=== PATIENT | male | born 1955 | race Caucasian/White ===

== ENCOUNTER 2017-09-17 07:08 | Emergency (ER) | payer BC ==
--- OUTSIDE RECORDS SUMMARY | 2017-09-17 07:10 | XMS REPORT | Clinical Summary ---
:1955 Author Organization [facility] Address [address] [place] [address] Phone Care Team Providers Name Role Phone Unavailable Primary Care Provider Unavailable Allergies No Known Allergies Current Medications Prescription Sig. Disp. Refills Start Date End Date Status esomeprazole (NEXIUM) Take 40 mg by mouth 2 Active 40 MG capsule (two) times daily . folic acid (FOLVITE) Take 1 mg by mouth Active 1 MG tablet daily. gabapentin Take 300 mg by mouth 3 Active (NEURONTIN) 300 MG (three) times daily. capsule metFORMIN Take 1,000 mg by mouth Active (GLUCOPHAGE) 1000 MG 2 (two) times daily tablet with breakfast and dinner. thiamine 100 MG Take 100 mg by mouth Active tablet daily. insulin glargine Inject 40 Units Active (LANTUS) 100 unit/mL subcutaneously every injection morning Use as directed . lisinopril Take 20 mg by mouth Active (PRINIVIL,ZESTRIL) 20 daily In the evening . MG tablet temazepam (RESTORIL) Take 30 mg by mouth Active 30 mg capsule every night as needed for Sleep. amLODIPine (NORVASC) Take 5 mg by mouth Active 5 MG tablet daily In the evening . glipiZIDE (GLUCOTROL Take 5 mg by mouth Active XL) 5 MG 24 hr daily At 12 noon . tabletIndications: type 2 diabetes mellitus metoprolol Take 50 mg by mouth 3 Active (LOPRESSOR) 50 MG (three) times daily i tablet tab in am, 2 tabs in pm . traMADol (ULTRAM) 50 Take 50 mg by mouth Active mg tablet every 6 (six) hours as needed for Pain. cloNIDine HCl Take 0.1 mg by mouth 4 Active (CATAPRES) 0.1 MG (four) times daily as tablet needed (prn high blood pressure). Active Problems Problem Noted Date Lower GI bleeding 01/06/2016 Acute blood loss anemia 01/06/2016 Chronic pancreatitis (HCC) 01/06/2016 HTN (hypertension) 01/06/2016 Type 2 diabetes mellitus (HCC) 01/06/2016 GERD (gastroesophageal reflux disease) 01/06/2016 Diverticulosis large intestine w/o perforation or abscess w/bleeding 2015 Gallstone pancreatitis 08/26/2013 Immunizations Name Dates Previously Given Next Due Pneumococcal Polysaccharide (Pneumovax) 01/06/2016 Social History Tobacco Use Types Packs/Day Years Used Date Current Every Day Smoker Cigarettes 0.5 27 Smokeless Tobacco: Never Used Tobacco Cessation: Ready to Quit: No Alcohol Use Drinks/Week oz/Week Comments Yes 2 Glasses of wine 1.2 since new years. Sex Assigned at Date Recorded Not on file Last Filed Vital Signs Not on file Plan of Treatment Health Maintenance Due Date Last Done Comments INFLUENZA VACCINE 03/02/2018 Results Not on fileafter 09/16/2016
--- NOTE | 2017-09-17 07:42 | ER ---
Nurse's Notes [facility] Name: Yannick Barrios Age: 61 yrs Sex: Male : 1955 Arrival Date: 09/17/2017 Time: 07:13 Bed 20 Private MD: Nael Espinoza Diagnosis: piraformis syndrome. Presentation: 09/17 07:22 Presenting complaint: Patient states: has had right hip pain since the weekend, felt a iw pop on then started having pain over the weekend, has hx of arthritis in left hip. Transition of care: patient was not received from another setting of care. Onset of symptoms was September 14, 2017. Initial Sepsis Screen: Does the patient meet any 2 criteria? No. Patient's initial sepsis screen is negative. Does the patient have a suspected source of infection? No. Patient's initial sepsis screen is negative. Care prior to arrival: None. 07:22 Method Of Arrival: Ambulatory iw 07:22 Acuity: MICHAEL 4 iw Historical: - Allergies: 07:26 Bees; iw - Home Meds: 07:26 Folic Acid Oral [Active]; gabapentin Oral [Active]; insulin [Active]; lisinopril Oral iw [Active]; Metformin Oral [Active]; Metoprolol Tartrate Oral [Active]; Nexium Oral [Active]; - PMHx: 07:26 Diabetes - IDDM; High Cholesterol; Hypertension; Pancreatitis; Arthritis; iw - PSHx: 07:26 Cholecystectomy; iw - Immunization history:: Adult Immunizations up to date. - Social history:: Smoking status: Patient/guardian denies using tobacco. Screenin:33 Abuse screen: Denies threats or abuse. Nutritional screening: No deficits noted. em Tuberculosis screening: No symptoms or risk factors identified. Fall Risk None identified. Assessment: 07:33 General: Appears in no apparent distress. comfortable, Behavior is calm, cooperative. em Pain: Complains of pain in right hip Pain currently is 7 out of 10 on a pain scale. Quality of pain is described as shooting, Pain began 2-3 days ago. Neuro: Level of Consciousness is awake, alert, obeys commands, Oriented to person, place, time, situation. Cardiovascular: Capillary refill < 3 seconds Patient's skin is warm and dry. Respiratory: Airway is patent Respiratory effort is even, unlabored, Respiratory pattern is regular, symmetrical. GI: Abdomen is round non-distended. : No signs and/or symptoms were reported regarding the genitourinary system. EENT: No signs and/or symptoms were reported regarding the EENT system. Derm: Skin is intact, Skin is pink, warm \T\ dry. Musculoskeletal: Circulation, motion, and sensation intact. Range of motion: intact in all extremities. 07:40 Reassessment: Patient appears in no apparent distress at this time. I agree with above iw assessment by Daniel Martinez LVN. Vital Signs: 07:26 BP 167 / 94; Pulse 69; Resp 18; Temp 97.2; Pulse Ox 99% on R/A; iw ED Course: 07:13 Patient arrived in ED. mr 07:13 Nael Espinoza MD is Private Physician. mr 07:21 Daniel Martinez LVN is Primary Nurse. em 07:24 Triage completed. iw 07:26 Arm band placed on. iw 07:33 Patient has correct armband on for positive identification. Bed in low position. Call em light in reach. Side rails up X2. 07:35 Adrian Burrell MD is Attending Physician. ps1 07:41 Nael Espinoza MD is Referral Physician. ps1 08:16 No provider procedures requiring assistance completed. Patient did not have IV access em during this emergency room visit. Administered Medications: 08:06 Not Given (Physician Discretion): Orphenadrine 100 mg PO once em 08:07 Drug: TORadol 30 mg Route: IM; Site: right deltoid; em 08:18 Follow up: Response: No adverse reaction em 08:07 Drug: Decadron 10 mg Route: IM; Site: left deltoid; em 08:18 Follow up: Response: No adverse reaction em Outcome: 07:41 Discharge ordered by . ps1 08:17 Discharged to home ambulatory. em 08:17 Condition: good 08:17 Discharge instructions given to patient, Instructed on discharge instructions, follow up and referral plans. medication usage, Demonstrated understanding of instructions, follow-up care, medications, Prescriptions given X 2. 08:29 Patient left the ED. em Signatures: Mariia Starr mr Daniel Martinez LVN LVN em Mary Chris, RN RN iw Adrian Burrell MD MD ps1
--- NOTE | 2017-09-17 07:42 | EDPHYS ---
Physician Documentation [facility] Name: Yannick Barrios Age: 61 yrs Sex: Male : 1955 Arrival Date: 09/17/2017 Time: 07:13 Bed 20 Private MD: Nael Espinoza ED Physician Adrian Burrell HPI: 09/17 07:35 This 61 yrs old Male presents to ER via Ambulatory with complaints of Hip ps1 Pain. 07:35 The patient or guardian reports decreased range of motion, pain. that occurred at an ps1 unknown site, sustained from unknown reason, The patient is able to self ambulate. The patient is able to bear their full body weight. The patient's discomfort radiates to the right leg. The complaints affect the right lower back. Onset: The symptoms/episode began/occurred 4 day(s) ago. Severity of symptoms: At their worst the symptoms were moderate, in the emergency department the symptoms are unchanged. patient has pain that radiates down the right lateral aspect of the hip. Pain with extension of the leg. Described as electrical feeling. . Historical: - Allergies: 07:26 Bees; iw - Home Meds: 07:26 Folic Acid Oral [Active]; gabapentin Oral [Active]; insulin [Active]; lisinopril Oral iw [Active]; Metformin Oral [Active]; Metoprolol Tartrate Oral [Active]; Nexium Oral [Active]; - PMHx: 07:26 Diabetes - IDDM; High Cholesterol; Hypertension; Pancreatitis; Arthritis; iw - PSHx: 07:26 Cholecystectomy; iw - Immunization history:: Adult Immunizations up to date. - Social history:: Smoking status: Patient/guardian denies using tobacco. ROS: 07:35 Constitutional: Negative for fever, chills, and weight loss, Eyes: Negative for injury, ps1 pain, redness, and discharge, ENT: Negative for injury, pain, and discharge, Cardiovascular: Negative for chest pain, palpitations, and edema, Respiratory: Negative for shortness of breath, cough, wheezing, and pleuritic chest pain, Abdomen/GI: Negative for abdominal pain, nausea, vomiting, diarrhea, and constipation, MS/Extremity: Negative for injury and deformity, Skin: Negative for injury, rash, and discoloration, Neuro: Negative for headache, weakness, numbness, tingling, and seizure. 07:35 Back: Positive for decreased range of motion, pain with movement. Exam: 07:35 Constitutional: This is a well developed, well nourished patient who is awake, alert, ps1 and in no acute distress. Head/Face: Normocephalic, atraumatic. Eyes: Pupils equal round and reactive to light, extra-ocular motions intact. Lids and lashes normal. Conjunctiva and sclera are non-icteric and not injected. ENT: Nares patent. No nasal discharge, no septal abnormalities noted. Tympanic membranes are normal and external auditory canals are clear. Oropharynx with no redness, swelling, or masses, exudates, or evidence of obstruction, uvula midline. Mucous membranes moist. Chest/axilla: Normal chest wall appearance and motion. Nontender with no deformity. No lesions are appreciated. Cardiovascular: Regular rate and rhythm. No gallops, murmurs, or rubs. Normal PMI, no JVD. No pulse deficits. Respiratory: Lungs have equal breath sounds bilaterally, clear to auscultation and percussion. No rales, rhonchi or wheezes noted. No increased work of breathing, no retractions or nasal flaring. Abdomen/GI: Soft, non-tender, with normal bowel sounds. No distension or tympany. No guarding or rebound. No evidence of tenderness throughout. 07:35 Back: pain, that is very mild, ROM is painful, normal spinal alignment noted, muscle spasm, is appreciated in the right low back. Vital Signs: 07:26 BP 167 / 94; Pulse 69; Resp 18; Temp 97.2; Pulse Ox 99% on R/A; iw MDM: 07:35 Data reviewed: vital signs, nurses notes. ED course: patient history and physical ps1 consitent with piriformis syndrome. NSAIDs, steroids, muscle relaxer, and exercise. Stable for discharge. Follow up with Alexis. . 07:41 Patient medically screened. ps1 Administered Medications: 08:06 Not Given (Physician Discretion): Orphenadrine 100 mg PO once em 08:07 Drug: TORadol 30 mg Route: IM; Site: right deltoid; em 08:18 Follow up: Response: No adverse reaction em 08:07 Drug: Decadron 10 mg Route: IM; Site: left deltoid; em 08:18 Follow up: Response: No adverse reaction em Disposition: 09/17/17 07:41 Discharged to Home. Impression: piraformis syndrome. . - Condition is Stable. - Discharge Instructions: Back Pain, Adult, Back Exercises, [id number]. - Prescriptions for Robaxin 500 mg Oral Tablet - take 2 tablet by ORAL route every 6 hours As needed; 40 tablet. Medrol (Curtis) 4 mg Oral Tablets, Dose Pack - take 1 tablet by ORAL route as directed - follow package instructions; 1 packet. - Medication Reconciliation Form, Thank You Letter, Antibiotic Education, Prescription Opioid Use form. - Follow up: Nael Espinoza MD; When: As needed; Reason: Recheck today's complaints, Continuance of care, Re-evaluation by your physician. Follow up: Emergency Department; When: As needed; Reason: Fever > 102 F, Worsening of condition. - Problem is new. - Symptoms are unchanged. Signatures: Daniel Martinez, APPLE CARUSON em Mary Chris RN RN iw Singer, Phillip, MD MD ps1
[2017-09-17] MEDS ORDERED: DEXAMETHASONE 10 MG/ML VIAL ONE (07:57)
[2017-09-17] MEDS ORDERED: KETOROLAC 30 MG/ML INJ ONE (07:57)
[2017-09-17 08:33] VITALS: BP 167/94; TEMP 97.2; O2SAT 99
== END 2017-09-17 08:29 | disposition home or self-care (01) ==
LOC: ER 07:08
DX: G57.00 Lesion of sciatic nerve, unspecified lower limb (principal); I10 Essential (primary) hypertension; E11.9 Type 2 diabetes mellitus without complications; E78.00 Pure hypercholesterolemia, unspecified; Z79.4 Long term (current) use of insulin; Z91.030 Bee allergy status
CPT/HCPCS: 96372; 99283; J1100

== ENCOUNTER 2018-10-25 09:45 | Emergency (ER) | payer BC ==
--- OUTSIDE RECORDS SUMMARY | 2018-10-25 09:48 | XMS REPORT ---
:1955 Author Organization [facility] Address [address] [place] [address] [address] [place] [address] Care Team Providers Name Role Phone FRANCISCOSERAFINANTOINETTE Unavailable Unavailable JACQUELYN OLIVIA Unavailable Unavailable Problems This patient has no known problems. Allergies, Adverse Reactions, Alerts This patient has no known allergies or adverse reactions. Medications This patient has no known medications. Results Test Description Test Time Test Comments Text Results Atomic Results Result Comments [place], ERCP 2018-04-02 15:00:00 Reason for exam:->calculus FINAL REPORT PATIENT ID: of pancreas [id number] ERCP, 04/02/2018 Clinical History: Calculus of pancreas Impression: Intraoperative images are obtained. The radiologist is not present during the procedure. Fluoroscopy was not performed by the undersigned. Images are presented for interpretation at the completion of the procedure. Please refer to the procedure report for more details. 10 images submitted with fluoroscopy time of 7.5 minutes demonstrating interrogation of the pancreatic duct which appears irregular. Signed: Aysha Harris MDReport Verified Date/Time: 04/02/2018 15:00:46 Reading Location: [address] Radiology Reading Room -GLUCOSE METER 2018-04-02 14:38:00 Test Item Value Reference Range Comments POC-GLUCOSE METER (BEAKER) (test 316 mg/dL 70-110 TESTED AT [address] gxoz=[id number]) [facility] [address] POCT-GLUCOSE [id number] 13:05:00 Test Item Value Reference Range Comments POC-GLUCOSE METER (BEAKER) 277 mg/dL 70-110 TESTED AT [address] (test knle=9641) [facility] [address] POCT-GLUCOSE [id number] 11:19:00 Test Item Value Reference Range Comments POC-GLUCOSE METER (OMER) 298 mg/dL 70-110 TESTED AT [facility] [address] (test hjtv=3257) [facility] [address] CT, [id number] 14:05:00FINAL REPORT CT of the abdomen and pelvis, 01/26/2018. History: History of chronic pancreatitis. Comparison: 09/26/2017 and 08/02/2013. Technique: Multidetector CT scanning of the abdomen and pelvis was performed from the level of the lung bases to the inferior pubic ramus, with intravenous administration of non-ionic contrast and with oral contrast. This exam was performed according to our departmental dose-optimization program which includes automated exposure control, adjustment of the mA and/or kV according to patient size and/or use of iterative reconstruction technique. Discussion: Lung bases: 1.3 and 1.0 cm noncalcified nodules are present in the right lower lobe posteriorly, stable or decreased in size compared to prior CT of 2013,therefore benign. Abdomen: Multiple small dystrophic calcifications are again seen throughout the pancreas, especially in the head of the pancreas, consistent with chronic pancreatitis. There is no enhancing pancreatic lesion. The pancreatic tail is atrophic. The pancreatic duct is visible measuring up to 6 mm in diameter. Cholecystectomy clips are present. There is mild dilatation of the intrahepatic biliary ducts. A subcentimeter hypodensity is noted in the left kidney. The liver, spleen, adrenal glands, and kidneys are otherwise normal. The hepatic vein, portal vein , and splenic vein are patent. The abdominal aorta is diffusely calcified but within normal limits for size. Evaluation of bowel is limited without oral contrast. There is no bowel dilatation. The appendix is visualized and is normal. Diverticula are scattered throughout the distal colon without evidence of adjacent inflammation.There is no evidence of adenopathy or free fluid. Pelvis: The bladder, prostate, and seminal vesicles are normal in appearance. Bilateral fat-containing inguinal hernias are present. There is no evidence of free fluid or adenopathy. Bones: Degenerative changes are present throughout the lumbar spine without evidence of lytic or sclerotic lesion. IMPRESSION: 1. Findings of chronic pancreatitis. No evidence of pancreatic mass.2. Status post cholecystectomy.3. Colonic diverticulosis without evidence of diverticulitis. Otherwise unremarkable CT of the abdomen and pelvis. Signed: Brisa, Norbert MDReport Verified Date/Time: 01/26/2018 14:05:50 Reading Location: [address] Radiology Reading Room [id number] 12:17:00 Test Item Value Reference Range Comments POC-CREATININE (OMER) 0.7 mg/dL 0.6-1.3 TESTED AT [facility] (test uktr=7436) [facility] [address] POC-EGFR (BEDANIEL) (test 114 mL/min/1.73M2 vouw=6204) CT, [id number] 14:10:00FINAL REPORT ABDOMINAL AND PELVIS CT DATED 09/26/2017 COMPARISON: August 02, 2013 CLINICAL INFORMATION: CHRONIC PANCREATITIS DUE TO ACUTE ALCOHOL INTOXICATION TECHNIQUE: Axial images of the abdomen and pelvis were obtained from diaphragm to the pubic symphysis with intravenous contrast. Preintravenous axial images of the abdomen were obtained. This exam was performed according to our departmental dose- optimization program, which includes automated exposure control, adjustment of the mA and/or kV according to patient size and/or use of interactive reconstruction technique. COMMENT: A 7 mm partially calcified nodule is seen in the right lung bases compatible with hamartoma. Liver and spleen are normal in size without focal abnormality. Gallbladder is surgically absent. No biliary dilatation is noted. Body and tail of the pancreas are atrophic. Numerous punctate calcifications are seen throughout the pancreas consistent with chronic pancreatitis. There is minimal pancreatic duct dilatation in the body region measuring approximately 5 mm in diameter. No apparent mass is seen in the pancreas. The adrenals are unremarkable. Both kidneys are normal in size and functioning. A5 mm and 6 mm cysts are seen in the midpole left kidney. No hydronephrosis, hydroureter, urolithiasis is seen. Diverticular disease is seen in the large bowel without diverticulitis. Large amount fecalmaterial is seen in the large bowel and rectum suggesting constipation. Small bowel is normal in caliber. Appendix is not visualized. Atherosclerotic calcification is seen in the abdominal aorta and bilateral iliac arteries. IMPRESSION: 1. Chronic pancreatitis.2. Status post cholecystectomy without biliary dilatation.3. Diverticulosis and constipation. Signed: Shahrzad Riddle MDReport Verified Date/Time : 09/26/2017 14:10:22 Reading Location: [facility] B1 C013Y CT Body Reading Room Electronically signedby: SHAHRZAD RIDDLE M.D. on 09/26/2017 02:10 PMPOCT- [id number] 10:27:00 Test Item Value Reference Range Comments POC-CREATININE (Maximum Balance FoundationAKER) 0.7 mg/dL 0.6-1.3 TESTED AT [facility] (test dpdq=1764) [facility] [address] POC-EGFR (BEAKER) (test 115 mL/min/1.73M2 jasv=8402)
--- OUTSIDE RECORDS SUMMARY | 2018-10-25 09:48 | XMS REPORT | Clinical Summary ---
:1955 Author Organization [facility] Address [address] [place] [address] Care Team Providers Name Role Phone Asked, No Pcp Primary Care Provider Unavailable Allergies No Known Allergies Medications Medication Sig Dispensed Refills Start Date End Date Status clonIDINE (CATAPRES) 0.1 Take 0.1 mg by 0 04/27/2018 Active MG tablet mouth 4 (four) times a day. amLODIPine (NORVASC) 5 Take 5 mg by 1 02/12/2018 Active mg tablet mouth every evening. CREON 36,000-114,000- Take 1 capsule 2 01/28/2018 Active 180,000 unit by mouth 3 capsule,delayed (three) times a release(DR/EC) day. esomeprazole (NexIUM) 40 Take 40 mg by 3 03/12/2018 Active MG capsule mouth 2 (two) times a day. gabapentin (NEURONTIN) Take 300 mg by 1 02/19/2018 Active 300 mg capsule mouth 3 (three) times a day. HUMALOG KWIKPEN INSULIN Inject 2 Units 1 04/08/2018 Active 100 unit/mL injection under the skin 3 pen (three) times a day. LANTUS SOLOSTAR U-100 Inject 33 Units 1 04/24/2018 Active INSULIN 100 unit/mL under the skin injection (pen) nightly. lisinopril Take 20 mg by 0 04/27/2018 Active (PRINIVIL,ZESTRIL) 20 mg mouth every tablet evening. metFORMIN (GLUCOPHAGE) Take 1,000 mg by 0 04/20/2018 Active 1,000 mg tablet mouth 2 (two) times a day. metoprolol tartrate Take 50 mg by 1 02/12/2018 Active (LOPRESSOR) 50 mg tablet mouth 3 (three) times a day. omega-3 acid ethyl Take 1 capsule 3 02/27/2018 Active esters (LOVAZA) 1 gram by mouth daily. capsule temazepam (RESTORIL) 30 Take 30 mg by 1 03/12/2018 Active mg capsule mouth daily. traMADol (ULTRAM) 50 mg Take 50 mg by 1 04/07/2018 Active tablet mouth 3 (three) times a day. folic acid (FOLVITE) 1 Take 1 tablet by 3 03/18/2018 Active MG tablet mouth daily. Bifidobacterium infantis Take 1 tablet by 0 Active (ALIGN ORAL) mouth daily. FLAXSEED ORAL Take 1 tablet by 0 Active mouth daily. MILK THISTLE ORAL Take 1 tablet by 0 Active mouth daily. NIACIN ORAL Take 1 tablet by 0 Active mouth daily. thiamine 100 MG tablet Take 100 mg by 0 Active mouth daily. Active Problems Problem Noted Date Umbilical hernia without obstruction and without gangrene 05/05/2018 Last Assessment & Plan: The patient has a symptomatic umbilical hernia. The patient's last hemoglobin A1c was 7%. I will obtain another hemoglobin A1c prior to surgery. The patient will also need cardiac clearance with Dr. Mcknight in [place]. I will also need to obtain the patient's last CT scan images and results from Dr. Carrillo. He reports having this done at a [facility]. The patient must also stop smoking for 30 days prior to surgery. The patient will be scheduled for laparoscopic umbilical hernia repair with mesh, after the above items are completed. Encounters Date Type Specialty Care Team Description 08/24/2018 Telephone General Surgery Crescencio Denney MD 07/21/2018 Telephone General Surgery Crescencio Denney MD 06/11/2018 Telephone General Surgery Crescencio Denney MD 05/08/2018 Telephone General Surgery Crescencio Denney MD 04/30/2018 Office Visit General Surgery Crescencio Denney MD Umbilical hernia without obstruction and without gangrene (Primary Dx) 04/30/2018 Orders Only General Surgery Crescencio Denney MD Diabetes mellitus of other type with complication, unspecified whether nursing home insulin use (HCC) (Primary Dx); Preop testing after 10/24/2017 Family History Medical History Relation Name Comments No Known Problems Brother No Known Problems Daughter No Known Problems Daughter Diabetes Father Other Father heart problem Mental illness Maternal Grandfather Old age Maternal Grandmother Alzheimer's disease Mother Colon cancer Paternal Grandfather Colon cancer Paternal Grandmother No Known Problems Sister No Known Problems Sister No Known Problems Sister No Known Problems Sister No Known Problems Son No Known Problems Son Relation Name Status Comments Brother Alive Daughter Alive Daughter Alive Father Maternal Grandfather Maternal Grandmother Mother Other Paternal Grandfather Paternal Grandmother Sister Alive Sister Alive Sister Alive Sister Alive Son Alive Son Alive Social History Tobacco Use Types Packs/Day Years Used Date Current Every Day Smoker Cigarettes 1 40 Smokeless Tobacco: Never Used Alcohol Use Drinks/Week oz/Week Comments No Alcohol Habits Answer Date Recorded How often do you have a drink containing alcohol? Never 04/30/2018 How many drinks containing alcohol do you have on a typical Not asked day when you are drinking? How often do you have six or more drinks on one occasion? Not asked Sex Assigned at Date Recorded Not on file Job Start Date Occupation Industry Not on file Not on file Not on file Travel History Travel Start Travel End No recent travel history available. Last Filed Vital Signs Vital Sign Reading Time Taken Blood Pressure 143/67 04/30/2018 10:57 AM CELL BIOLOGY SCIENTIST Pulse 56 04/30/2018 10:57 AM CELL BIOLOGY SCIENTIST Temperature 36.9 C (98.5 F) 04/30/2018 10:57 AM CELL BIOLOGY SCIENTIST Respiratory Rate 16 04/30/2018 10:57 AM CELL BIOLOGY SCIENTIST Oxygen Saturation - - Inhaled Oxygen Concentration - - Weight 80.8 kg (178 lb 3.2 oz) 04/30/2018 10:57 AM CELL BIOLOGY SCIENTIST Height 176.5 cm (5' 9.5") 04/30/2018 10:57 AM CELL BIOLOGY SCIENTIST Body Mass Index 25.94 04/30/2018 10:57 AM CELL BIOLOGY SCIENTIST Plan of Treatment Health Maintenance Due Date Last Done Comments DIABETIC RETINAL EYE EXAM 1955 DIABETIC FOOT EXAM 12/18/1965 URINE MICROALBUMIN 12/18/1965 COLON CANCER SCREENING 12/18/2005 SHINGLES VACCINES (#1) 12/18/2005 INFLUENZA VACCINE 12/31/2018 Results Not on fileafter 10/24/2017 Advance Directives Patient has advance care planning documents on file. For more information, please contact:Terrence Madden[address] [facility] [address]
--- OUTSIDE RECORDS SUMMARY | 2018-10-25 09:48 | XMS REPORT | Clinical Summary ---
:1955 Author Organization [facility] Address [address] [place] [address] Care Team Providers Name Role Phone Alexis Nael Primary Care Provider Allergies No Known Allergies Medications Medication Sig Dispensed Refills Start Date End Date Status esomeprazole (NEXIUM) Take 40 mg by mouth 0 Active 40 MG capsule 2 (two) times daily . folic acid (FOLVITE) Take 1 mg by mouth 0 Active 1 MG tablet daily. gabapentin Take 300 mg by mouth 0 Active (NEURONTIN) 300 MG 3 (three) times capsule daily. metFORMIN Take 1,000 mg by 0 Active (GLUCOPHAGE) 1000 MG mouth 2 (two) times tablet daily with breakfast and dinner. thiamine 100 MG Take 100 mg by mouth 0 Active tablet daily. insulin glargine Inject 33 Units 0 Active (LANTUS) 100 unit/mL subcutaneously injection nightly Use as directed . lisinopril Take 20 mg by mouth 0 Active (PRINIVIL,ZESTRIL) 20 daily In the evening MG tablet . temazepam (RESTORIL) Take 30 mg by mouth 0 Active 30 mg capsule every night as needed for Sleep. amLODIPine (NORVASC) Take 5 mg by mouth 0 Active 5 MG tablet daily In the evening . glipiZIDE (GLUCOTROL Take 5 mg by mouth 0 Active XL) 5 MG 24 hr daily At 12 noon . tabletIndications: type 2 diabetes mellitus metoprolol Take 50 mg by mouth 0 Active (LOPRESSOR) 50 MG 3 (three) times tablet daily 1 tab in am, 1 in the afternoon, 1 tab at night. traMADol (ULTRAM) 50 Take 50 mg by mouth 0 Active mg tablet every 6 (six) hours as needed for Pain. cloNIDine HCl Take 0.1 mg by mouth 0 Active (CATAPRES) 0.1 MG 4 (four) times daily tablet as needed (prn high blood pressure). insulin aspart U-100 Inject 2 Units 0 Active (NOVOLOG) 100 unit/mL subcutaneously 3 InPn (three) times daily with meals Sliding Scale . vbkrpt-fdamkurk-vcqba Take 36,000 units of 0 Active se (CREON) lipase by mouth 3 36,000-114,000- (three) times daily. 180,000 unit CpDR capsule Bifidobacterium Take 1 tablet by 0 Active infantis (ALIGN ORAL) mouth daily. flaxseed oil Oil 1 capsule by 0 Active Miscellaneous route 2 (two) times daily. NIACIN ORAL Take 1 tablet by 0 Active mouth daily. MILK THISTLE ORAL Take 1 tablet by 0 Active mouth daily. omega-3/dha/epa/fish Take 4 capsules by 0 Active oil (OMEGA-3 ORAL) mouth daily. Active Problems Problem Noted Date Lower GI bleeding 01/06/2016 Acute blood loss anemia 01/06/2016 Chronic pancreatitis 01/06/2016 HTN (hypertension) 01/06/2016 Type 2 diabetes mellitus 01/06/2016 GERD (gastroesophageal reflux disease) 01/06/2016 Diverticulosis large intestine w/o perforation or abscess w/bleeding 2015 Gallstone pancreatitis 08/26/2013 Encounters Date Type Specialty Care Team Description 04/02/2018 Anesthesia Event Gastroenterology Graham Zacarias MD 04/02/2018 Surgery Gastroenterology Filipe Oden, ERCP,DIRECT MD VISUALIZATION SPY [place] 04/02/2018 [facility] Gastroenterology Filipe Oden, Encounter 04/01/2018 Hospital Pre-Admission Testing Filipe Oden, Encounter Resource, Oqmt Preadmit Phone 01/26/2018 [facility] Radiology Jason Carrillo Weight loss Encounter MD Raciel 01/23/2018 Outside Orders Central Scheduling Jason Carrillo Weight loss ( Primary MD Raciel Dx) after 10/24/2017 Immunizations Name Dates Previously Given Next Due Pneumococcal Polysaccharide (Pneumovax) 01/06/2016 Social History Tobacco Use Types Packs/Day Years Used Date Current Every Day Smoker Cigarettes 1 40 Smokeless Tobacco: Never Used Tobacco Cessation: Ready to Quit: Yes; Counseling Given: Yes Comments: Has tried Chantix Alcohol Use Drinks/Week oz/Week Comments Yes 2 Glasses of wine 1.2 Occasionally Sex Assigned at Date Recorded Not on file Job Start Date Occupation Industry Not on file Not on file Not on file Travel History Travel Start Travel End No recent travel history available. Last Filed Vital Signs Vital Sign Reading Time Taken Blood Pressure 151/74 04/02/2018 3:00 PM CDT Pulse 70 04/02/2018 3:00 PM CDT Temperature 36.8 C (98.2 F) 04/02/2018 3:00 PM CDT Respiratory Rate 16 04/02/2018 3:00 PM CDT Oxygen Saturation 95% 04/02/2018 3:00 PM CDT Inhaled Oxygen Concentration - - Weight 80.8 kg (178 lb 3.2 oz) 04/02/2018 10:57 AM CDT Height 182.9 cm (6') 04/02/2018 10:57 AM CDT Body Mass Index 24.17 04/02/2018 10:57 AM CDT Plan of Treatment Date Type Specialty Care Team Description 11/12/2018 Hospital Encounter Gastroenterology Filipe Oden MD [address] [place] [address] [phone] 11/12/2018 Surgery Gastroenterology Filipe Oden MD ERCP,STENT REMOVAL [address] [place] [address] [phone] Implants Implanted Type Area Bioprocessing Manufacturing Technician Device Shelf Model / Identifier Expiration Serial / Lot Date Stent Panc Advx St [id number] - [id number] Stents-Pe [employer]END[employer] 3652 / Implanted: Qty: 1 on 04/02/2018 by Filipe Oden MD [facility] / [id number] Procedures Procedure Name Priority Date/Time Associated Diagnosis Comments POCT-GLUCOSE METER Routine 04/02/2018 2:34 PM Results for this CDT procedure are in the results section. REPORT OF PROCEDURE 04/02/2018 2:26 PM - ENDOSCOPY URL CDT [place] ERCP Routine 04/02/2018 2:22 PM Results for this CDT procedure are in the results section. POCT-GLUCOSE METER Routine 04/02/2018 1:04 PM Results for this CDT procedure are in the results section. PROCEDURE W/ C-ARM 04/02/2018 12:00 PM Calculus of pancreas CDT Special Needs (C-ARM) ERCP,DIRECT VISUALIZATION SPY GLASS 04/02/2018 12:00 PM CDT Calculus of pancreas Special Needs (C-ARM) POCT-GLUCOSE METER Routine 04/02/2018 11:16 AM Results for this CDT procedure are in the results section. CT ABDOMEN/PELVIS Routine 01/26/2018 12:30 PM Weight loss Results for this WITH/WITHOUT IV CONTRAST CDT procedure are in the results section. POCT-CREATININE Routine 01/26/2018 12:10 PM Results for this CDT procedure are in the results section. after 10/24/2017 Results POC-Glucose meter (04/02/2018 2:34 PM CDT)Only the most recent of3 resultswithin the time period is included. POC-Glucose Meter 316 (H)Comment: TESTED AT 70 - 110 mg/dL [facility] [address] [facility] [address] Specimen Blood Performing Organization Address City/State/Zipcode Phone Number [address] [address] [phone] CENTER REPORT OF PROCEDURE - ENDOSCOPY URL (04/02/2018 2:26 PM CDT) Narrative Performed At [place] Endoscopic Retrograde Cholangiopancreatography (04/02/2018 2:22 PM CDT) Specimen Narrative Performed At FINAL REPORT [facility] ERCP, 04/02/2018 Clinical History: Calculus of pancreas Impression: Intraoperative images are obtained. The radiologist is not present during the procedure. Fluoroscopy was not performed by the undersigned.Images are presented for interpretation at the completion of the procedure.Please refer to the procedure report for more details. 10 images submitted with fluoroscopy time of 7.5 minutes demonstrating interrogation of the pancreatic duct which appears irregular. Signed: Aysha Harris MD Report Verified Date/Time:04/02/2018 15:00:46 Reading Location: [address] Radiology Reading Room Procedure Note Interface, External Ris In - 04/02/2018 3:02 PM CDT FINAL REPORT ERCP, 04/02/2018 Clinical History: Calculus of pancreas [...] duct which appears irregular. Signed: Aysha Harris MD Report Verified Date/Time: 04/02/2018 15:00:46 Reading Location: [address] Radiology Reading Room Performing Organization Address City/State/Zipcode Phone Number [employer] CT abdomen/pelvis without & with IV contrast (01/26/2018 12:30 PM CDT) Specimen Narrative Performed At FINAL REPORT [employer] CT of the abdomen and pelvis, 01/26/2018. History: History of chronic pancreatitis. Comparison: 09/26/2017 and 08/02/2013. Technique: Multidetector CT scanning of the abdomen and pelvis was performed from the level of the lung bases to the inferior pubic ramus, with intravenous administration of non-ionic contrast and with oral contrast.This exam was performed according to our departmental dose-optimization program which includes automated exposure control, adjustment of the mA and/or kV according to patient size and/or use of iterative reconstruction technique. Discussion: Lung bases: 1.3 and 1.0 cm noncalcified nodules are present in the right lower lobe posteriorly, stable or decreased in size compared to prior CT of 2013, therefore benign. Abdomen: Multiple small dystrophic calcifications are [...] are otherwise normal. The hepatic vein, portal vein, and splenic vein are patent.The abdominal aorta is diffusely calcified but within [...] of chronic pancreatitis. No evidence of pancreatic mass. 2. Status post cholecystectomy. 3. Colonic diverticulosis without evidence of diverticulitis. Otherwise unremarkable CT of the abdomen and pelvis. Signed: Norbert Ledezma MD Report Verified Date/Time:01/26/2018 14:05:50 Reading Location: [address] Radiology Reading Room Procedure Note Interface, External Ris In - 01/26/2018 2:[address]AL REPORT CT of the abdomen and pelvis, [...] in size compared to prior CT of 2013, therefore benign. Abdomen: Multiple small dystrophic calcifications are [...] are otherwise normal. The hepatic vein, portal vein, and splenic vein are patent. The abdominal aorta is diffusely calcified but within normal limits for size. Evaluation of bowel is limited without oral contrast. There is no bowel dilatation. The appendix is visualized and is normal. Diverticula are scattered throughout the distal colon without evidence of adjacent inflammation. There is no evidence of adenopathy or free fluid. Pelvis: The bladder, prostate, and seminal vesicles are normal in appearance. Bilateral fat-containing inguinal hernias are present. There is no evidence of free fluid or adenopathy. Bones: Degenerative changes are present throughout the lumbar spine without evidence of lytic or sclerotic lesion. IMPRESSION: 1. Findings of chronic pancreatitis. No evidence of pancreatic mass. 2. Status post cholecystectomy. 3. Colonic diverticulosis without evidence of diverticulitis. Otherwise unremarkable CT of the abdomen and pelvis. Signed: Norbert Ledezma MD Report Verified Date/Time: 01/26/2018 14:05:50 Reading Location: [address] Radiology Reading Room Performing Organization Address City/[facility]/Zipcode Phone Number [facility] RIS POC-Creatinine (01/26/2018 12:10 PM CDT) POC-Creatinine 0.7Comment: TESTED AT 0.6 - 1.3 mg/dL [id number] [id number] [facility] [address] POC-EGFR 114 mL/min/1.73M2 [facility] Specimen Blood Performing Organization Address City/State/Zipcode Phone Number [address] [address] CENTER after 10/24/2017 Insurance Payer Benefit Plan / Subscriber ID Type Phone Address Group BLUE CROSS/BLUE BCBS PPO POS EPO xxxxxxxxxxxx PPO [phone] [address] [place] [address] Advance Directives For more information, please contact:[address] [phone] Code Status Date Activated Date Inactivated Comments Full Code 01/06/2016 1:33 AM 01/08/2016 5:59 PM This code status was determined by: Patient Full Code 01/06/2016 1:31 AM 01/06/2016 1:33 AM This code status was determined by: Patient Code ONE 08/26/2013 7:10 AM 08/26/2013 8:17 PM All possible means of support , including: cardiac massage, mechanical ventilation, and defibrillation will be used to support life.
[2018-10-25 11:19] LABS: Absolute Lymphocytes (CBC) 1.3 K/uL (0.7-4.9); Absolute Monocytes 1.1 K/uL (0.1-1.3); Absolute Neutrophil 10.9 K/uL (1.8-8.0); Basophils % 0.3 % (0-1.3); Eosinophils % 0.1 % (0-4.4); Hematocrit 33.3 % (39.6-49.0); Lymphocytes % 9.8 % (15.3-44.8); MPV 8.6 fL (7.6-11.3); Monocytes % 8.3 % (3.3-12.3); RBC Red Blood Cell Count 3.66 M/uL (4.33-5.43)
[2018-10-25 11:28] LABS: BUN Blood Urea Nitrogen 12 mg/dL (7-18); Bicarbonate 25 mmol/L (21-32); Glucose Level 174 mg/dL (74-106); Potassium 4.1 mmol/L (3.5-5.1); Sodium Level 133 mmol/L (136-145)
--- NOTE | 2018-10-25 12:10 | EDPHYS ---
Physician Documentation [facility] Name: Yannick Barrios Age: 62 yrs Sex: Male : 1955 Arrival Date: 10/25/2018 Time: 09:48 Bed 13 Private MD: Nael Espinoza ED Physician Hermilo Perez HPI: 10/25 10:37 This 62 yrs old Male presents to ER via Ambulatory with complaints of Fever. kdr 10:37 The patient reports fever, that was measured at 103 degrees Fahrenheit. Onset: The kdr symptoms/episode began/occurred Since Friday, the patient has had intermittent fever to 103. Has been intermittently responsive to Aleve but yesterday, his temp persisted despite taking Aleve. The patient has no other c/o including general malaise or pain. His only c/o is stuffed up left ear.. Severity of symptoms: At their worst the symptoms were mild in the emergency department the symptoms have resolved. The patient has not experienced similar symptoms in the past. The patient has not recently seen a physician. The patient has no focal c/o and would not be here except that his daughter (?) was concerned that he may have an internal infection with his history of pancreatitis. However, the patient denies any pain consistent with past episodes of pancreatitis. Historical: - Allergies: 10:00 Bees; sg - Home Meds: 10:14 Folic Acid Oral 1 tab once daily [Active]; gabapentin 300 mg oral cap 3 times per day iw [Active]; lisinopril-hydrochlorothiazide 20-12.5 mg oral tab 1 tab once daily [Active]; glimepiride 4 mg Oral tab 1 tab once daily [Active]; thiamine HCl (vitamin B1) 100 mg Oral tab daily [Active]; metformin 500 mg Oral Tb24 2 times per day [Active]; atorvastatin 20 mg oral tab 1 tab once daily [Active]; Lantus 100 unit/mL Sub-Q soln 50 unit nightly [Active]; esomeprazole magnesium 40 mg oral cpDR 1 cap once daily [Active]; - PMHx: 10:00 Arthritis; Diabetes - IDDM; High Cholesterol; Hypertension; Pancreatitis; sg - PSHx: 10:00 Cholecystectomy; pancreatic stent; sg - Immunization history:: Adult Immunizations up to date. - Social history:: Smoking status: Patient/guardian denies using tobacco. - Ebola Screening: : Patient negative for fever greater than or equal to 101.5 degrees Fahrenheit, and additional compatible Ebola Virus Disease symptoms Patient denies exposure to infectious person Patient denies travel to an Ebola-affected area in the 21 days before illness onset No symptoms or risks identified at this time. ROS: 10:37 Constitutional: Negative for subjective fever, chills, and weight loss - there has kdr been an objective fever measured but he hgas not felt hot or poorly Eyes: Negative for injury, pain, redness, and discharge, Neck: Negative for injury, pain, and swelling, Cardiovascular: Negative for chest pain, palpitations, and edema, Respiratory: Negative for shortness of breath, cough, wheezing, and pleuritic chest pain, Abdomen/GI: Negative for abdominal pain, nausea, vomiting, diarrhea, and constipation, Back: Negative for injury and pain, : Negative for injury, bleeding, discharge, and swelling, MS/Extremity: Negative for injury and deformity, Skin: Negative for injury, rash, and discoloration, Neuro: Negative for headache, weakness, numbness, tingling, and seizure activity. Psych: Negative for depression, anxiety, suicide ideation, homicidal ideation, and hallucinations, Allergy/Immunology: Negative for hives, rash, and allergies, Endocrine: Negative for neck swelling, polydipsia, polyuria, polyphagia, and marked weight changes, Hematologic/Lymphatic: Negative for swollen nodes, abnormal bleeding, and unusual bruising. 10:37 ENT: Positive for Subjectively the patient feels that his left ear is stopped up.. Exam: 10:37 Constitutional: This is a well developed, well nourished patient who is awake, alert, kdr and in no acute distress. Head/Face: Normocephalic, atraumatic. Eyes: Pupils equal round and reactive to light, extra-ocular motions intact. Lids and lashes normal. Conjunctiva and sclera are non-icteric and not injected. Cornea within normal limits. Periorbital areas with no swelling, redness, or edema. Neck: Trachea midline, no thyromegaly or masses palpated, and no cervical lymphadenopathy. Supple, full range of motion without nuchal rigidity, or vertebral point tenderness. No Meningismus. Chest/axilla: Normal chest wall appearance and motion. Nontender with no deformity. No lesions are appreciated. Cardiovascular: Regular rate and rhythm with a normal S1 and S2. No gallops, murmurs, or rubs. Normal PMI, no JVD. No pulse deficits. Respiratory: Lungs have equal breath sounds bilaterally, clear to auscultation and percussion. No rales, rhonchi or wheezes noted. No increased work of breathing, no retractions or nasal flaring. Abdomen/GI: Soft, non-tender, with normal bowel sounds. No distension or tympany. No guarding or rebound. No evidence of tenderness throughout. Back: No spinal tenderness. No costovertebral tenderness. Full range of motion. 10:37 ENT: External ear(s): are unremarkable, Ear canal(s): cerumen impaction, that is mild, bilaterally, TM's: not visable. Vital Signs: 09:57 BP 96 / 57; Pulse 72; Resp 18; Pulse Ox 98% on R/A; sg 09:57 Temp 97.6; sg 11:25 BP 91 / 60; Pulse 70; Resp 17 S; Pulse Ox 98% on R/A; sg MDM: 10:37 Data reviewed: vital signs, nurses notes, lab test result(s). kdr 12:09 Patient medically screened. kdr 10/25 10:36 Order name: CBC with Diff; Complete Time: 12:06 kdr 10/25 10:36 Order name: Chem 7; Complete Time: 12:06 kdr 10/25 10:36 Order name: Flu; Complete Time: 12:06 kdr Administered Medications: No medications were administered Disposition: 10/25/18 12:09 Discharged to Home. Impression: Fever, unspecified, Viral infection, unspecified. - Condition is Stable. - Discharge Instructions: Ibuprofen Dosage Chart, Pediatric, Acetaminophen Dosage Chart, Pediatric, Fever, Adult, Zrce-wx-Pzzo. - Medication Reconciliation Form, Thank You Letter form. - Follow up: Nael Espinoza MD; When: 2 - 3 days; Reason: If symptoms return, Further diagnostic work-up, Recheck today's complaints, Continuance of care, Re-evaluation by your physician. - Problem is new. - Symptoms have improved. Signatures: Dispatcher [employer] EDMS Jose Gilman RN RN Hermilo Cárdenas MD MD [facility] Mary Chris, RN RN iw Corrections: (The following items were deleted from the chart) 10:14 10:05 Home Meds: Folic Acid Oral 1 tab once daily; sg iw 10:14 10:05 Home Meds: gabapentin Oral; sg iw 12:39 12:09 10/25/2018 12:09 Discharged to Home. Impression: Fever, unspecified; Viral sg infection, unspecified. Condition is Stable. Forms are Medication Reconciliation Form, Thank You Letter, Antibiotic Education, Prescription Opioid Use. Follow up: Nael Espinoza; When: 2 - 3 days; Reason: If symptoms return, Further diagnostic work-up, Recheck today's complaints, Continuance of care, Re-evaluation by your physician. Problem is new. Symptoms have improved. kdr
--- NOTE | 2018-10-25 12:10 | ER ---
Nurse's Notes [facility] Name: Yannick Barrios Age: 62 yrs Sex: Male : 1955 Arrival Date: 10/25/2018 Time: 09:48 Bed 13 Private MD: Nael Espinoza Diagnosis: Fever, unspecified;Viral infection, unspecified Presentation: 10/25 10:01 Presenting complaint: states: Fever since Friday, Denies pain/N/V/D, denies sg cough/congestion, denies bodyaches or headaches as well. Pt did report that he has had Left ear pain that started around Friday. Transition of care: patient was not received from another setting of care. Onset of symptoms was October 25, 2018. Risk Assessment: Do you want to hurt yourself or someone else? Patient reports no desire to harm self or others. Initial Sepsis Screen: Does the patient meet any 2 criteria? No. Patient's initial sepsis screen is negative. Does the patient have a suspected source of infection? No. Patient's initial sepsis screen is negative. Care prior to arrival: None. 10:01 Method Of Arrival: Ambulatory sg 10:01 Acuity: MICHAEL 3 sg Historical: - Allergies: 10:00 Bees; sg - Home Meds: 10:14 Folic Acid Oral 1 tab once daily [Active]; gabapentin 300 mg oral cap 3 times per day iw [Active]; lisinopril-hydrochlorothiazide 20-12.5 mg oral tab 1 tab once daily [Active]; glimepiride 4 mg Oral tab 1 tab once daily [Active]; thiamine HCl (vitamin B1) 100 mg Oral tab daily [Active]; metformin 500 mg Oral Tb24 2 times per day [Active]; atorvastatin 20 mg oral tab 1 tab once daily [Active]; Lantus 100 unit/mL Sub-Q soln 50 unit nightly [Active]; esomeprazole magnesium 40 mg oral cpDR 1 cap once daily [Active]; - PMHx: 10:00 Arthritis; Diabetes - IDDM; High Cholesterol; Hypertension; Pancreatitis; sg - PSHx: 10:00 Cholecystectomy; pancreatic stent; sg - Immunization history:: Adult Immunizations up to date. - Social history:: Smoking status: Patient/guardian denies using tobacco. - Ebola Screening: : Patient negative for fever greater than or equal to 101.5 degrees Fahrenheit, and additional compatible Ebola Virus Disease symptoms Patient denies exposure to infectious person Patient denies travel to an Ebola-affected area in the 21 days before illness onset No symptoms or risks identified at this time. Screenin:00 Abuse screen: Denies threats or abuse. Denies injuries from another. Nutritional sg screening: No deficits noted. Tuberculosis screening: No symptoms or risk factors identified. Never had TB. Fall Risk None identified. Assessment: 10:00 General: Appears in no apparent distress. well groomed, well developed, well nourished, sg Behavior is calm, cooperative, appropriate for age. Pain: Complains of pain in Left Ear Quality of pain is described as aching. Neuro: Level of Consciousness is awake, alert, obeys commands, Oriented to person, place, time, Visual Presentation Manager are equal bilaterally Moves all extremities. Full function Speech is normal, Facial symmetry appears normal. Cardiovascular: Heart tones S1 S2 present Capillary refill is brisk in bilateral fingers Patient's skin is warm and dry. Chest pain is denied. Respiratory: Airway is patent Respiratory effort is even, unlabored, Respiratory pattern is regular, symmetrical. GI: No signs and/or symptoms were reported involving the gastrointestinal system. : No signs and/or symptoms were reported regarding the genitourinary system. EENT: No signs and/or symptoms were reported regarding the EENT system. Derm: Skin is pink, warm \T\ dry. Musculoskeletal: No signs and/or symptoms reported regarding the musculoskeletal system. Vital Signs: 09:57 BP 96 / 57; Pulse 72; Resp 18; Pulse Ox 98% on R/A; sg 09:57 Temp 97.6; sg 11:25 BP 91 / 60; Pulse 70; Resp 17 S; Pulse Ox 98% on R/A; sg ED Course: 09:48 Patient arrived in ED. rg4 09:48 Hermilo Perez MD is Attending Physician. kdr 09:48 Nael Espinoza MD is Private Physician. rg4 09:57 Jsoe Gilman, REZA is Primary Nurse. sg 09:57 Arm band placed on. sg 10:04 Triage completed. sg 12:06 Nael Espinoza MD is Referral Physician. kdr Administered Medications: No medications were administered Outcome: 12:09 Discharge ordered by MD. kdr 12:39 Patient left the ED. sg Signatures: Jose Gilman RN RN sg Hermilo Perez MD MD kdr Mary Chris RN RN iw Garcia, Rubi 4 Corrections: (The following items were deleted from the chart) 10:14 10:05 Home Meds: Folic Acid Oral 1 tab once daily; sg iw 10:14 10:05 Home Meds: gabapentin Oral; sg iw
[2018-10-25 12:45] VITALS: TEMP 97.6; O2SAT 98
[2018-10-25 12:46] VITALS: BP 91/60
== END 2018-10-25 12:39 | disposition home or self-care (01) ==
LOC: ER 09:45
DX: B34.9 Viral infection, unspecified (principal); E11.9 Type 2 diabetes mellitus without complications; E78.00 Pure hypercholesterolemia, unspecified; I10 Essential (primary) hypertension; Z79.4 Long term (current) use of insulin
CPT/HCPCS: 36415; 80048; 85025; 87804; 99281

== ENCOUNTER 2019-05-12 06:30 | Day surgery (SDC) | payer BC ==
--- NOTE | 2019-05-11 17:10 | RAD REPORT ---
EXAM DESCRIPTION: Deo Brantley (2 Views)05/11/2019 4:59 pm CLINICAL HISTORY: Preop for removal of a mass from forehead COMPARISON: August 2018 FINDINGS: The lungs appear clear of acute infiltrate. The heart is normal size IMPRESSION: No acute abnormalities displayed
[2019-05-11 17:25] LABS: Absolute Lymphocytes (CBC) 1.6 K/uL (0.7-4.9); Basophils % 0.7 % (0-1.3); Hematocrit 42.4 % (39.6-49.0); Lymphocytes % 24.6 % (15.3-44.8); MPV 9.1 fL (7.6-11.3); RBC Red Blood Cell Count 5.03 M/uL (4.33-5.43)
[2019-05-11 17:41] LABS: Potassium 4.4 mmol/L (3.5-5.1)
--- NOTE | 2019-05-11 18:22 | EKG ---
Test Date: 2019-05-11 Test Time: 16:34:23 Transport Analyst: NIGEL MEASUREMENT RESULTS: Intervals: Rate: 58 WA: 186 QRSD: 90 QT: 414 QTc: 406 [place]: P: 76 WA: 186 QRS: 74 T: 74 INTERPRETIVE STATEMENTS: Sinus bradycardia with sinus arrhythmia Otherwise normal ECG Compared to ECG 09/25/2018 10:19:22 Sinus rhythm no longer present Electronically Signed On 05-11-19 18:21:57 SYSTEMS DEVELOPMENT MANAGER by Alexi Chávez
--- OUTSIDE RECORDS SUMMARY | 2019-05-12 06:34 | XMS REPORT ---
:1955 [facility] Address [address] [place] [address] Care Team Providers Name Role Phone JACQUELYN OLIVIA Unavailable Unavailable ANTOINETTE LEE Unavailable Unavailable Problems This patient has no known problems. Allergies, Adverse Reactions, Alerts This patient has no known allergies or adverse reactions. Medications This patient has no known medications. Results Test Description Test Time Test Comments Text Results Atomic Results Result Comments CT, ABDOMEN, WITHOUT 2019-01-08 17:24:[address] abdomen without and with contrast History: Alcohol induced chronic pancreatitis Comparison: Multiple prior examinations dating back to 08/02/2013 Technique: serial axial imaging was performed without and subsequently following up to 100cc of non ionic iodinated intravenous contrast as per departmental protocol. Multiplanar images are reconstructed and reviewed when indicated. This CT examination is performed using one or more of the following dose reduction techniques: Automated exposure control, adjustment of the mA and /or kV according to patient size, and/or use of iterative reconstruction technique. Findings: A noncalcified right lower lobe pulmonary nodule measuring 14 mm in size demonstrates no significant change dating back to 08/02/2013 and is consistent with benign etiology. Additional nodule with central calcification within the right lower lobe measuring 9 mm in size is most suggestive of a calcified granuloma. Coarse calcifications are again seen throughout the pancreas, suggestive of prior pancreatitis. No pancreatic ductal dilation is appreciated. A stent has been placed within the proximal pancreatic duct. No pancreatic mass is appreciated. Pneumobilia is noted, consistent with prior sphincterotomy. The liver is otherwise unremarkable. The patient is status post cholecystectomy. Mild, nonspecific of the bilateral adrenal glands. Simple appearing cysts are identified within the left kidney, largest measuring 13 mm in size. The visualized kidneys and ureters are otherwise unremarkable. . No small or large bowel obstruction. No apparent bowel wall thickening. No findings to indicate acute appendicitis. No free fluid or lymphadenopathy. No abdominal aortic aneurysm. No aggressive osseous lesion. Impression: 1. Interval placement of proximal pancreatic duct stent.2. Coarse calcifications throughout the pancreas, consistent with prior pancreatitis. No acute inflammatory changes are identified. No pancreatic mass is appreciated.3. Previous cholecystectomy. Signed: Shereen Mcbrideort Verified Date/Time: 01/08/2019 17:24:13 Reading Location: [facility] Reading Room -CREATININE 2019-01-08 15:09:00 Test Item Value Reference Range Comments POC-CREATININE (BEAKER) (test 0.8 mg/dL 0.6-1.3 TESTED AT [place] [address] lrgc=3971) [facility] [address] POC-EGFR (BEAKER) (test 98 mL/min/1.73M2 whrj=0823) [place], [id number] 17:03:00Reason for exam:->Calculus of pancreasFINAL REPORT TECHNIQUE: Fluoroscopic images from endoscopic retrograde cholangiopancreatography. INDICATION: 62-year-old man with calculus of pancreas. COMPARISON: ERCP 04/02/2018. IMPRESSION:Fluoroscopic images from endoscopic retrograde cholangiopancreatography, not obtained bythe undersigned. Please refer to endoscopy note for more details of the procedure and findings. Fluoroscopy time: 3.9 minutesNumber of images: 8 Signed: Teri Lipscomb MDReport Verified Date/Time: 11/12/2018 17:03:27 Reading Location: [address] Radiology Reading Room POCT-GLUCOSE [id number] 13:20:00 Test Item Value Reference Range Comments POC-GLUCOSE METER (BEAKER) 187 mg/dL 70-110 TESTED AT [facility] [address] [facility] (test abmg=6474) [facility] [address] [place], [id number] 15:00:00Reason for exam:->calculus of pancreasFINAL REPORT ERCP, 04/02/2018 Clinical History: Calculus of [...] appears irregular. Signed: Aysha Harris MDReport Verified Date/ Time: 04/02/2018 15:00:46 Reading Location: [address] Radiology Reading Room 03: 00 PMPOCT-GLUCOSE [id number] 14:38:00 Test Item Value Reference Range Comments POC-GLUCOSE METER (BEAKER) 316 mg/dL 70-110 TESTED AT [address] (test ydkx=2062) [place] [address] POCT-GLUCOSE [id number] 13:05:00 Test Item Value Reference Range Comments POC-GLUCOSE METER (BEAKER) 277 mg/dL 70-110 TESTED AT [address] (test rync=8232) [place] [address] POCT-GLUCOSE [id number] 11:19:00 Test Item Value Reference Range Comments POC-GLUCOSE METER (BEAKER) 298 mg/dL 70-110 TESTED AT [address] (test xvtq=0344) [place] [address] CT, [id number] 14:05:00FINAL REPORT CT of the abdomen and [...] of the abdomen and pelvis. Signed: Norbert Ledezmaeport Verified Date/Time: 01/26/2018 14:05:50 Reading Location: [address] Radiology Reading Room [id number] 12:17:00 Test Item Value Reference Range Comments POC-CREATININE (ALDOAKER) 0.7 mg/dL 0.6-1.3 TESTED AT [facility] [address] (test lmgq=2138) [facility] [address] POC-EGFR (BEAKER) (test 114 mL/min/1.73M2 cpez=8082) CT, [id number] 14:10:00FINAL REPORT ABDOMINAL AND PELVIS CT DATED [...] Verified Date/Time : 09/26/2017 14:10:22 Reading Location: [facility] C013Y CT Body Reading Room Electronically signedby: SHAHRZAD RIDDLE M.D. on 09/26/2017 02:10 PMPOCT- [id number] 10:27:00 Test Item Value Reference Range Comments POC-CREATININE (OMER) 0.7 mg/dL 0.6-1.3 TESTED AT [facility] [address] (test fsiq=2853) [facility] [address] POC-EGFR (OMER) (test 115 mL/min/1.73M2 lvza=3804)
[2019-05-12] MEDS ORDERED: NA CHLORIDE 0.9% 1,000 ML ONE (06:52)
[2019-05-12] MEDS ORDERED: CEFAZOLIN/SWI 1gm 1 GM/10 ML SYR ONE (06:52)
[2019-05-12] MEDS ORDERED: propofoL 200 MG/20 ML VIAL IV ONE (07:10)
[2019-05-12] MEDS ORDERED: FENTANYL CITR 100 MCG/2 ML ONE (07:11)
[2019-05-12] MEDS ORDERED: MIDAZOLAM HCL 2 MG/2 ML INJ ONE (07:11)
[2019-05-12] MEDS ORDERED: LIDOCAINE 2% MPF 5 ML VIAL ONE (07:11)
[2019-05-12] MEDS ORDERED: BUPIVACAINE 0.5% PF 10 ML VIAL ONE (07:12)
[2019-05-12] MEDS ORDERED: SUCCINYLCHOLINE 20 MG/ML (10 ML) IV ONE (07:49)
--- NOTE | 2019-05-12 08:25 | P.BOP ---
Preoperative diagnosis: Left temporal tender subcutaneous mass Postoperative diagnosis: same Primary procedure: Excisional biopsy of Left temporal tender subcutaneous mass 3.5 x 3.5cm Estimated blood loss: <10cc Specimen: mass Findings: Left temporal tender subcutaneous mass Anesthesia: General Complications: None Transferred to: Recovery Room Condition: Good
[2019-05-12 10:44] VITALS: BP 104/60; TEMP 97.6; O2SAT 96
--- NOTE | 2019-05-12 20:52 | DS ---
Date of Discharge: 05/12/2019 Diagnosis: Left temporal tender subcutaneous mass. Procedure: Excisional biopsy of left temporal tender subcutaneous mass 3.5 x 3.5 cm. Disposition: Home. Activity: As tolerated. No heavy lifting. Followup: Follow up in my office in 1 week. Call for appointment [phone]. CIERA/JERAD Voice ID: [id number] Report ID: [id number]
--- NOTE | 2019-05-12 20:52 | OP ---
Date of Procedure: 05/12/2019 Surgeon: Clinton Barcenas MD Diagnosis: Left temporal tender subcutaneous mass. Postoperative Diagnosis: Left temporal tender subcutaneous mass. Procedure: Excisional biopsy of left temporal tender subcutaneous mass 3.5 x 3.5 cm. Anesthesia: General plus local. Indications: This is the case of a 63-year-old patient, who came to us with a tender temporal mass i ncreasing in size and discomfort. Patient want that excised. Benefits, alternatives, and risks of e xcision fully explained which included, but not limited to infection, bleeding, damage to adjacent st ructures, anesthesia complication, recurrence, OK, and even . He also understands this may not relieve any symptoms. He might need more than one surgical intervention. It will leave a scar in th at area. He signed the consent. Description Of Procedure: Patient brought to the operating room, placed in supine position. Anesthe steven was done without complication. Temporal area and forehead were prepped and draped in a sterile f ashion. The area of concern was marked previously by me and the patient in the holding room. Once w e had the area prepped and draped and then time-out was called, we proceeded to make an incision in t hat area. We quickly noticed there was a mass with cystic component, so we proceeded carefully with blunt dissection and removed the mass and making sure it was completely excised. This went all the w ay down to bone, did not penetrate the bone. Mass was completely excised. The area was profusely ir rigated. Hemostasis obtained and then the area was closed with a combination of 3-0 chromic and then Dermabond on top with compression dressings. Patient tolerated the procedure well. Patient was sent to Recovery in s table condition. CIERA/JERAD Voice ID: [id number] Report ID: [id number]
== END 2019-05-12 10:00 | disposition home or self-care (01) ==
LOC: OR 06:30
PROVIDERS: ATTEND Surgery
PROC: 0JB00ZZ Excision of Scalp Subcutaneous Tissue and Fascia, Open Approach (ICD-10-PCS; principal; 2019-05-12 07:30)
DX: L72.0 Epidermal cyst (principal); E11.9 Type 2 diabetes mellitus without complications; I10 Essential (primary) hypertension; M19.90 Unspecified osteoarthritis, unspecified site; F17.210 Nicotine dependence, cigarettes, uncomplicated; Z79.4 Long term (current) use of insulin; Z90.49 Acquired absence of other specified parts of digestive tract; Z83.3 Family history of diabetes mellitus
CPT/HCPCS: 93005; 85025; 80048; 36415; 82947 ×2; 88304; 71046; 11424; J2704; J0330; J2250; J3010; J0690; J7030; 88305

== ENCOUNTER 2023-10-10 13:45 | Emergency (ER) | payer OTHER, BC ==
[2023-10-10] MEDS ORDERED: NA CHLORIDE 0.9% 1,000 ML ONE (14:11)
[2023-10-10] MEDS ORDERED: TDAP (DIPHTH,PERTUSS(ACELL),TET VAC) 0.5 ML VIAL IMVAC ONE (14:11)
[2023-10-10 14:29] LABS: Absolute Basophils 0.1 K/uL (0-0.5); Absolute Eosinophils 0.4 K/uL (0-0.5); Absolute Lymphocytes (CBC) 3.6 K/uL (0.7-4.9); Absolute Monocytes 0.8 K/uL (0.1-1.3); Absolute Neutrophil 5.9 K/uL (1.8-8.0); Basophils % 0.9 % (0-1.3); Eosinophils % 3.3 % (0-4.4); Hematocrit 44.1 % (39.6-49.0); Hemoglobin 14.8 g/dL (13.6-17.9); Lymphocytes % 33.4 % (15.3-44.8); MCH 27.5 pg (27.0-35.0); MCHC 33.6 g/dL (32.0-36.0); MCV 81.7 fL (80-100); MPV 7.8 fL (7.6-11.3); Monocytes % 7.8 % (3.3-12.3); Neutrophils % 54.6 % (41.7-73.7); Platelets 243 thou/uL (152-406); RBC Red Blood Cell Count 5.39 M/uL (4.33-5.43); Red Cell Distribution Width 16.6 % (12.1-15.2)
[2023-10-10 14:41] LABS: Anion Gap 7.9 mEq/L (5.0-15.0); Potassium 3.9 mEq/L (3.5-5.1); Troponin High Sensitivity 6.1 pg/mL (<58.9)
--- NOTE | 2023-10-10 15:02 | RAD REPORT ---
EXAM DESCRIPTION: RAD - Hand Right 3 View - 10/10/2023 2:44 pm CLINICAL HISTORY: Right hand pain status post injury FINDINGS: No fracture or dislocation is seen.
--- NOTE | 2023-10-10 15:09 | ER ---
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 Coronavirus screen: At this time, the client does not indicate any symptoms associated with coronavirus-19. Ebola Screen: No symptoms or risks identified at this time. 13:53 Method Of Arrival: Wheelchair hb 13:55 Initial Sepsis Screen: Does the patient meet any 2 criteria? Mean Arterial Pressure hb (MAP) < 65. Does the patient have a suspected source of infection? No. Patient's initial sepsis screen is negative. Risk Assessment: Do you want to hurt yourself or someone else? Patient reports no desire to harm self or others. Onset of symptoms was October 10, 2023 at 13:00. 13:55 Acuity: MICHAEL 2 hb Triage Assessment: 13:55 General: Appears distressed, Behavior is cooperative, appropriate for age, drowsy. hb Pain: Complains of pain in right hand. Neuro: Level of Consciousness is alert, obeys commands, lethargic, Oriented to Appropriate for age. Cardiovascular: Rhythm is sinus bradycardia. Historical: - Allergies: 13:52 Bees; hb - PMHx: 13:52 Arthritis; Hypertension; Pancreatitis; Diabetes - IDDM; High Cholesterol; hb - Immunization history:: Adult Immunizations up to date. - Infectious Disease History:: Denies. - Social history:: Smoking status: Patient reports the use of cigarette tobacco products, smokes one pack cigarettes per day. Screenin:58 [facility] ED Fall Risk Assessment (Adult) History of falling in the last 3 months, kc6 including since admission No falls in past 3 months (0 pts) Confusion or Disorientation No (0 pts) Intoxicated or Sedated No (0 pts) Impaired Gait Yes (1 pt) Mobility Assist Device Used Yes (1 pt) Altered Elimination No (0 pt) Score/Fall Risk Level 0 - 2 = Low Risk. Abuse screen: Denies threats or abuse. Denies injuries from another. Nutritional screening: No deficits noted. Tuberculosis screening: No symptoms or risk factors identified. Assessment: 14:00 General: Appears in no apparent distress. comfortable, well groomed, well developed, kc6 Behavior is calm, cooperative, appropriate for age. Pain: Complains of pain in right hand Pain currently is 10 out of 10 on a pain scale. Neuro: Level of Consciousness is awake, alert, obeys commands, Oriented to person, place, time, situation, Appropriate for age Reports dizziness. Cardiovascular: Capillary refill < 3 seconds. Respiratory: Airway is patent Trachea midline Respiratory effort is even, unlabored, Respiratory pattern is regular, symmetrical. GI: No signs and/or symptoms were reported involving the gastrointestinal system. : No signs and/or symptoms were reported regarding the genitourinary system. EENT: Reports blurred vision. Derm: No signs and/or symptoms reported regarding the dermatologic system. Skin is intact, is healthy with good turgor, Skin is diaphoretic, Skin is normal, Skin temperature is warm. Musculoskeletal: No signs and/or symptoms reported regarding the musculoskeletal system. Circulation, motion, and sensation intact. Capillary refill < 3 seconds, Range of motion: intact in all extremities. 15:34 Reassessment: Patient appears in no apparent distress at this time. No changes from kc6 previously documented assessment. Patient and/or family updated on plan of care and expected duration. Pain level reassessed. Patient is alert, oriented x 3, equal unlabored respirations, skin warm/dry/pink. Patient states feeling better. Patient states symptoms have improved. Vital Signs: 13:53 BP 57 / 40; Pulse 51; Resp 16; Temp 98.1; Pulse Ox 94% on R/A; Weight 86.18 kg; hb 13:55 BP 65 / 40; Pulse 51; Resp 14; Pulse Ox 92% ; hb 14:08 BP 95 / 50; ec2 14:53 BP 109 / 62; Pulse 58; Resp 16 S; Pulse Ox 95% on R/A; kc6 15:34 BP 117 / 62; Pulse 56; Resp 14 S; Pulse Ox 94% on R/A; kc6 ED Course: 13:50 Patient arrived in ED. mg5 13:55 Guido Coleman MD is Attending Physician. ec2 13:55 Triage completed. hb 13:55 Arm band placed on. hb 13:57 Jeannette Fleming, RN is Primary Nurse. kc6 13:58 Patient has correct armband on for positive identification. Placed in gown. Bed in low kc6 position. Call light in reach. Side rails up X2. Adult w/ patient. Client placed on continuous cardiac and pulse oximetry monitoring. NIBP monitoring applied. Pillow given. 14:00 Inserted saline lock: 20 gauge in right antecubital area, using aseptic technique. kc6 Blood collected. 14:46 Hand Right 3 View XRAY In Process Unspecified. EDMS 15:35 Provided Education on: wound care. kc6 15:35 No provider procedures requiring assistance completed. IV discontinued, intact, kc6 bleeding controlled, No redness/swelling at site. Pressure dressing applied. Administered Medications: 14:30 Drug: NS 0.9% IV 1000 ml IV at 1 bolus Per protocol; 1000 mL bolus Route: IV; Rate: 1 kc6 bolus; Site: right antecubital; 15:34 Follow up: Response: No adverse reaction; IV Status: Completed infusion; IV Intake: kc6 1000ml 14:30 Drug: Boostrix Tdap IM 0.5 ml IM once; as a single dose Route: IM; Site: right deltoid; kc6 14:59 Follow up: Response: No adverse reaction kc6 Medication: 15:35 VIS not applicable for this client. kc6 Intake: 15:34 IV: 1000ml; Total: 1000ml. kc6 Outcome: 15:09 Discharge ordered by . ec2 15:35 Discharged to home ambulatory, with significant other, kc6 15:35 Condition: improved 15:35 Discharge instructions given to patient, significant other, Instructed on discharge instructions, follow up and referral plans. medication usage, Demonstrated understanding of instructions, follow-up care, medications, Prescriptions given X 2, 15:36 Patient left the ED. kc6 Signatures: Dispatcher [employer] EDNevaeh Styles RN RN Jeannette Fleming RN RN kc6 Fariha Pedraza mg5 Guido Coleman MD MD ec2
--- NOTE | 2023-10-10 15:10 | EDPHYS ---
Physician Documentation [facility] Name: Yannick Barrios Age: 67 yrs Sex: Male : 1955 Arrival Date: 10/10/2023 Time: 13:45 Bed 18 Private MD: ED Physician Guido Coleman HPI: 10/09 14:06 This 67 yrs old Male presents to ER via Wheelchair with complaints of Blurred ec2 Vision, Hand Swelling. 14:06 Patient arrives today for evaluation of hand injury. Patient reports that he was ec2 starting to travel subsequently tripped his right hand in the trap. Patient reports no significant bleeding, unsure of last tetanus shot. Patient reports no chest pain difficulty breathing, denies nausea or vomiting. Does complain of some lightheadedness associated with this as well. . Historical: - Allergies: 13:52 Bees; hb - PMHx: 13:52 Arthritis; Hypertension; Pancreatitis; Diabetes - IDDM; High Cholesterol; hb - Immunization history:: Adult Immunizations up to date. - Infectious Disease History:: Denies. - Social history:: Smoking status: Patient reports the use of cigarette tobacco products, smokes one pack cigarettes per day. ROS: 14:06 Constitutional: as per hpi ec2 Exam: 14:06 Constitutional: GEN: NAD Head: atraumatic Eyes: EOMI Ears: External ears are ec2 normal. CV: regular rate LUNGS: no respiratory distress ABD: non-distended SKIN: Contusions noted to the right hand. No open wounds, abrasions are noted. MSK: no evidence of trauma NEURO: moves all extremities equally Vital Signs: 13:53 BP 57 / 40; Pulse 51; Resp 16; Temp 98.1; Pulse Ox 94% on R/A; Weight 86.18 kg; hb 13:55 BP 65 / 40; Pulse 51; Resp 14; Pulse Ox 92% ; hb 14:08 BP 95 / 50; ec2 14:53 BP 109 / 62; Pulse 58; Resp 16 S; Pulse Ox 95% on R/A; kc6 15:34 BP 117 / 62; Pulse 56; Resp 14 S; Pulse Ox 94% on R/A; kc6 MDM: 14:06 Patient medically screened. ec2 14:06 Data reviewed: vital signs. ED course: Patient arrives today for evaluation of a hand ec2 injury. Examination remarkable for hand findings above. Patient noted to be hypotensive, reports some lightheadedness. Patient reports no chest pain or difficulty breathing. Will obtain lab work, EKG. Evaluating for bony fracture, dehydration, ACS. Additionally considering vasovagal hypotension given the patient's injury. . 14:13 ED course: EKG independently reviewed and interpreted by me, shows normal sinus rhythm, ec2 rate of 49, no acute ST segment elevations, intervals are nonconcerning. . 14:55 ED course: CBC is reassuring, metabolic profile shows slight hyponatremia, renal ec2 dysfunction with creatinine of 1.43 and a GFR 54, troponin is within normal ranges. . 15:06 ED course: Hand x-ray independently reviewed and interpreted by me, shows no bony ec2 fracture. Will discharge to home, return precautions given. . 10/09 14:06 Order name: CBC with Diff; Complete Time: 14:54 ec2 10/09 14:06 Order name: BMP; Complete Time: 14:54 ec2 10/09 14:22 Order name: Troponin High Sensitivity; Complete Time: 14:54 EDMS 10/09 14:06 Order name: Hand Right 3 View XRAY; Complete Time: 15:06 ec2 10/09 14:06 Order name: EKG - Nurse/Tech; Complete Time: 14:10 ec2 Administered Medications: 14:30 Drug: NS 0.9% IV 1000 ml IV at 1 bolus Per protocol; 1000 mL bolus Route: IV; Rate: 1 kc6 bolus; Site: right antecubital; 15:34 Follow up: Response: No adverse reaction; IV Status: Completed infusion; IV Intake: kc6 1000ml 14:30 Drug: Boostrix Tdap IM 0.5 ml IM once; as a single dose Route: IM; Site: right deltoid; kc6 14:59 Follow up: Response: No adverse reaction kc6 Disposition Summary: 10/10/23 15:09 Discharge Ordered Notes: Location: Home ec2 Condition: Stable ec2 Diagnosis - Crushing injury of right hand ec2 - Dizziness and giddiness ec2 Followup: ec2 - With: Private Physician - When: - Reason: Re-evaluation by your physician Discharge Instructions: - Discharge Summary Sheet ec2 - Crush Injury of the Hand, [id number] ec2 - Dizziness, [id number] ec2 Forms: - Medication Reconciliation Form ec2 - Antibiotic Education ec2 - Prescription Opioid Use ec2 - Patient Portal Instructions ec2 - Leadership Thank You Letter ec2 Prescriptions: - Cephalexin 500 mg Oral capsule - take 1 capsule ORAL route every 12 hours for 7 days; 14 capsule; Refills: 0, ec2 Product Selection Permitted - methocarbamol 500 mg Oral tablet - take 2 tablets ORAL route 4 times per day; 15 tablet; Refills: 0, Product ec2 Selection Permitted Signatures: Dispatcher [employer] Nevaeh Castañeda RN RN Jeannette Fleming RN RN kc6 Guido Coleman MD MD ec2 Corrections: (The following items were deleted from the chart) 14:22 14:09 Troponin High Sensitivity+[id number] ordered. MYRIAMRI OTYA
[2023-10-10 15:50] VITALS: TEMP 98.1
[2023-10-10 16:12] VITALS: BP 117/62; O2SAT 94
--- NOTE | 2023-10-13 13:26 | EKG ---
Test Date: 2023-10-10 Test Time: 14:10:43 Contact Center Associate: TAMERA MEASUREMENT RESULTS: Intervals: Rate: 49 HI: 194 QRSD: 134 QT: 464 QTc: 419 [place]: P: 69 HI: 194 QRS: 97 T: 64 INTERPRETIVE STATEMENTS: Marked sinus bradycardia Right bundle branch block Abnormal ECG Compared to ECG 05/11/2019 16:34:23 Right bundle-branch block now present Sinus arrhythmia no longer present Electronically Signed On 10-13-23 13:18:46 CDT by Naren Anton
== END 2023-10-10 15:36 | disposition home or self-care (01) ==
LOC: ER 13:45
DX: S67.21XA Crushing injury of right hand, initial encounter (principal); R42 Dizziness and giddiness; I10 Essential (primary) hypertension; F17.210 Nicotine dependence, cigarettes, uncomplicated; Z91.030 Bee allergy status
CPT/HCPCS: 85025; 80048; 36415; 84484; 73130; 96360; 96372; 99284; J7030; 93005